=== PATIENT | male | born 1950 | race Two or more races ===

== ENCOUNTER 2022-09-25 12:19 | Inpatient (IN) | payer OTHER ==
[~2022-09-25] VITALS: Ht 177.8 cm; Wt 96.0 kg
[2022-09-25] MEDS ORDERED: MORPHINE SULFATE 4 MG/ML SYR/VIAL IV ONE (12:30)
[2022-09-25] MEDS ORDERED: ONDANSETRON HCL 4 MG/2 ML VIAL IV ONE (12:30)
[2022-09-25 12:55] LABS: Basophils # (auto) 0 10 ^3/uL (0-0.2); Basophils % (auto) 0.3 % (0.0-2.0); Eosinophils # (auto) 0 10 ^3/uL (0-0.8); Eosinophils % (auto) 0.4 % (0.0-7.0); Hemoglobin 14.5 g/dL (13.5-17.5); Lymphocytes % (auto) 9.4 % (10.0-50.0); Mean Corpuscular Hemoglobin 28.6 pg (28.0-32.0); Mean Corpuscular Hgb Conc. 32.8 g/dL (32.0-36.0); Monocytes # (auto) 0.6 10 ^3/uL (0-1.3); Monocytes % (auto) 6.2 % (0.0-12.0); Neutrophils # (auto) 8.7 10 ^3/uL (1.6-8.6); Neutrophils % (auto) 83.7 % (37.0-80.0); Red Blood Cells 5.06 10^6/uL (4.5-5.90); Red Cell Distribution Width 13.8 % (11.8-14.3); White Blood Cell 10.4 10^3/uL (4.4-10.8)
[2022-09-25 13:11] LABS: INR 1.09 (0.9-1.15); Partial Thromboplastin Time 28.9 sec (24.6-33.4)
[2022-09-25 15:17] LABS: Anion Gap 8 (5-15); Carbon Dioxide 23 mmol/L (21-32); Chloride 103 mmol/L (98-107); Glucose 370 mg/dL (74-106); Potassium 4.5 mmol/L (3.5-5.1); Sodium 134 mmol/L (136-145)
[2022-09-25 15:18] LABS: Alanine Aminotransferase 37 U/L (16-61); Albumin 2.5 g/dL (3.4-5.0); Alkaline Phosphatase 89 U/L (45-117); Aspartate Aminotransferase 47 U/L (15-37); BUN/Creatinine Ratio 24.1; Bilirubin, Total < 0.1 mg/dL (0.2-1.0); Blood Urea Nitrogen 20 mg/dL (7-18); Calcium 8.6 mg/dL (8.5-10.1); GFR African American 117 mL/min; GFR Non-African American 97 mL/min; Magnesium 2.3 mg/dL (1.6-2.6); Total Protein 6.9 g/dL (6.4-8.2)
[2022-09-25] MEDS ORDERED: NITROGLYCERIN 0.4 MG SL TAB SL ONE (15:30)
[2022-09-25] MEDS ORDERED: HEPARIN DRIP/D5W 100UNITS/ML 250 ML IV SCH (15:35)
[2022-09-25] MEDS ORDERED: NITROGLYCERIN 0.4 MG SL TAB SL PRN (15:45)
[2022-09-25] MEDS ORDERED: ACETAMINOPHEN 325 MG TAB PO PRN (15:45)
[2022-09-25] MEDS ORDERED: MORPHINE SULFATE INJ 2 MG/ml SYRG IV PRN (15:45)
[2022-09-25] MEDS ORDERED: HEPARIN SODIUM (PORCINE) 5000 UNITS/ML 1ML VIAL IV ONE (16:00)
[2022-09-25] MEDS ORDERED: DEXTROSE (50%) 50ML SYRG IV PRN (16:00)
[2022-09-25] MEDS: ACCU-CHEK COMFORT CURVE STRIP VI SCH ×2 (17:00→21:23)
[2022-09-25] MEDS: InsuLIN REG 1unit/0.01ml Soln (100units/ml) SC SCH (17:00)
[2022-09-25] MEDS ORDERED: IODIXANOL 320MG/ML 100ML BTL IV ONE (17:02)
[2022-09-25] MEDS ORDERED: ANGIOMAX 250 MG VIAL IV ONE (17:22)
[2022-09-25] MEDS ORDERED: fentaNYL CITRATE 100 MCG/2 ML VL ONE (17:23)
[2022-09-25] MEDS ORDERED: SODIUM CHL 0.9% 0 ML ONE (17:23)
[2022-09-25] MEDS ORDERED: VERAPAMIL 2.5MG/ML INJ 2ML VIAL IV ONE (17:23)
[2022-09-25] MEDS ORDERED: HEPARIN SODIUM (PORCINE) 5000 UNITS/ML 1ML VIAL ONE (17:23)
[2022-09-25] MEDS ORDERED: MIDAZOLAM HCL 2MG/2ML 2ml VIAL (1mg/ml) ONE (17:23)
[2022-09-25] MEDS ORDERED: LIDOCAINE 2%HCL (LOCAL ANESTH.) INJ 10ml MDV ONE (17:24)
[2022-09-25 17:58] LABS: Cholesterol 139 mg/dL (< 200); HDL Cholesterol 41 mg/dL (40-59); LDL Cholesterol 79 mg/dL (< 100); Triglycerides 130 mg/dL (< 150)
[2022-09-25 20:15] VITALS: BP 117/63
[2022-09-25] MEDS ORDERED: METF-372 PO (20:26)
[2022-09-25] MEDS ORDERED: CARV3.1240 PO (20:26)
[2022-09-25] MEDS ORDERED: GLIP5TAB12 PO (20:26)
[2022-09-25] MEDS ORDERED: ATOR-47 PO (20:26)
[2022-09-25] MEDS ORDERED: SITA100T7 PO (20:26)
[2022-09-25] MEDS: TICAGRELOR 90 MG TAB PO SCH (21:13)
[2022-09-25] MEDS: SODIUM CHLORIDE 0.9% 1,000 ML IV SCH (21:18)
[2022-09-25 22:00] VITALS: BP 117/63
[2022-09-25] MEDS ORDERED: InsuLIN REG 1unit/0.01ml Soln (100units/ml) SC SCH (22:00)
[2022-09-25] MEDS ORDERED: CARVEDILOL 3.125 MG TAB PO ONE (22:00)
[2022-09-25] MEDS ORDERED: ATORVASTATIN 20 MG TAB PO ONE (22:00)
[2022-09-26 03:02] LABS: INR 1.09 (0.9-1.15); Partial Thromboplastin Time 31.6 sec (24.6-33.4)
[2022-09-26] MEDS ORDERED: HEPARIN SODIUM (PORCINE) 5000 UNITS/ML 1ML VIAL IV ONE ×2 (03:30→11:00)
[2022-09-26] MEDS ORDERED: HEPARIN DRIP/D5W 100UNITS/ML 250 ML IV SCH ×2 (03:30→10:45)
[2022-09-26 05:00] VITALS: BP 105/63
[2022-09-26 05:10] LABS: Basophils # (auto) 0 10 ^3/uL (0-0.2); Basophils % (auto) 0.4 % (0.0-2.0); Eosinophils # (auto) 0.2 10 ^3/uL (0-0.8); Eosinophils % (auto) 1.9 % (0.0-7.0); Hematocrit 41.6 % (41.0-53.0); Lymphocytes # (auto) 2.1 10 ^3/uL (0.4-5.4); Lymphocytes % (auto) 22.8 % (10.0-50.0); Mean Corpuscular Hemoglobin 28.9 pg (28.0-32.0); Mean Corpuscular Hgb Conc. 33.6 g/dL (32.0-36.0); Mean Corpuscular Volume 86.1 fL (80.0-100.0); Monocytes # (auto) 0.9 10 ^3/uL (0-1.3); Monocytes % (auto) 10.1 % (0.0-12.0); Neutrophils # (auto) 5.9 10 ^3/uL (1.6-8.6); Neutrophils % (auto) 64.8 % (37.0-80.0); Red Blood Cells 4.83 10^6/uL (4.5-5.90); Red Cell Distribution Width 13.7 % (11.8-14.3)
[2022-09-26] MEDS: ACCU-CHEK COMFORT CURVE STRIP VI SCH ×3 (06:12→17:00)
[2022-09-26] MEDS: InsuLIN REG 1unit/0.01ml Soln (100units/ml) SC SCH ×3 (06:17→17:00)
[2022-09-26 06:28] LABS: Albumin 2.2 g/dL (3.4-5.0); BUN/Creatinine Ratio 29.6; Bilirubin, Total 0.5 mg/dL (0.2-1.0); Calcium 8.1 mg/dL (8.5-10.1); Potassium 3.7 mmol/L (3.5-5.1); Total Protein 6.1 g/dL (6.4-8.2)
[2022-09-26 08:00] VITALS: BP_SYST 118; BP_SYST 119; BP_DIAS 62; BP_DIAS 67
[2022-09-26] MEDS ORDERED: ASPirin 81 mg TAB PO ONE ×2 (10:00→12:15)
[2022-09-26 10:22] LABS: INR 1.1 (0.9-1.15)
[2022-09-26] MEDS: TICAGRELOR 90 MG TAB PO SCH (10:32)
[2022-09-26 12:00] VITALS: BP 118/62
[2022-09-26] MEDS ORDERED: RANOLAZINE ER 500 MG TAB PO ONE (12:15)
[2022-09-26] MEDS: SODIUM CHLORIDE 0.9% 1,000 ML IV SCH (13:00)
[2022-09-26] MEDS ORDERED: RANO500T PO (13:24)
[2022-09-26] MEDS ORDERED: ASPI-325 PO (13:24)
[2022-09-26] MEDS ORDERED: TICA90TA PO (13:24)
[2022-09-26 16:04] VITALS: BP 122/74
[2022-09-26] MEDS ORDERED: RANOLAZINE ER 500 MG TAB PO SCH (22:00)
[2022-09-26] MEDS ORDERED: ATORVASTATIN 20 MG TAB PO SCH (22:00)
[2022-09-27] MEDS ORDERED: ASPirin 81 mg TAB PO SCH (10:00)
== END 2022-09-26 17:20 | disposition home or self-care (01) | DRG 280 ==
LOC: EDBD 12:19 → ER 12:19 → TELE 15:42 → TELE-CENTR 19:08
PROVIDERS: ADMIT Nurse Practitioner Family; ATTEND Internal Medicine
PROC: 4A023N7 Measurement of Cardiac Sampling and Pressure, Left Heart, Percutaneous Approach (ICD-10-PCS; principal; 2022-09-25)
PROC: B211YZZ Fluoroscopy of Multiple Coronary Arteries using Other Contrast (ICD-10-PCS; 2022-09-25)
DX: I21.4 Non-ST elevation (NSTEMI) myocardial infarction (principal); I50.43 Acute on chronic combined systolic (congestive) and diastolic (congestive) heart failure; E66.9 Obesity, unspecified; E78.5 Hyperlipidemia, unspecified; Z20.822 Contact with and (suspected) exposure to COVID-19; I10 Essential (primary) hypertension; E11.9 Type 2 diabetes mellitus without complications; I25.10 Atherosclerotic heart disease of native coronary artery without angina pectoris; I25.2 Old myocardial infarction; Z79.82 Long term (current) use of aspirin; Z79.899 Other long term (current) drug therapy; Z68.30 Body mass index [BMI] 30.0-30.9, adult
CPT/HCPCS: 36415; 71045; 80053; 80061; 82962; 83036; 83735; 83880; 84443; 84484; 85025; 85610; 85730; 87426; 93005; 93306; 93458; 96365; 96376; 99152; 99153; 99291; G0378; J1815; J2001; J2250; J2405; Q9967